=== PATIENT | female | born 1960 ===

== ENCOUNTER 2018-04-19 09:27 | Outpatient (CLI) | payer BC | END 2018-04-19 09:28 | disposition home or self-care (01) | LOC: C.MAMMO 09:28 ==

== ENCOUNTER 2018-07-12 09:38 | Outpatient (CLI) | payer BC | END 2018-07-12 09:39 | disposition home or self-care (01) | LOC: C.USIC 09:38 | DX: E04.1 Nontoxic single thyroid nodule (principal) ==